=== PATIENT | female | born 1940 | race Caucasian/White ===

== ENCOUNTER 2017-05-15 11:54 | Inpatient (IN) | payer OTHER ==
[~2017-05-15] VITALS: Ht 154.9 cm; Wt 58.5 kg
[~2017-05-15 11:54] MED LIST: ASPIR-LOW81 M1 PO; B COMPLEX1 SGL SL; BENAZEPRIL20 M1 PO; FLEXERIL10 MG PO; LEXAPRO10 MG PO; LOT20 PO; MOBIC PO; PRI20 PO; PROTONIX20 MG PO; RANEXA500 M1 PO; SYN5 PO; TOPROL XL25 MG PO; ZOC10 PO
--- NOTE | 2017-05-15 11:59 | NUR ---
PT SENT TO LOBBY TO WAIT FOR AVAILABLE BED. VITALS STABLE AND NO DISTRESS NOTED
--- NOTE | 2017-05-15 13:30 | NUR ---
PT BIBA C/O GENERALIZED WEAKNESS AND CONSTIPATION X 3 DAYS. PLACED PT ON CM, VSS. PT STS DYSURIA X 1 DAY. PT INSTRUCTED TO COLLECT CLECAN CATCH URINE SAMPLE. PLACED PT ON CM, VSS. PT A/O X 4, PT'S RESP E/U, PT ABLE TO SPEAK FULL SENTENCES. AWAITING DR VILLALOBOS.
[2017-05-15 13:53] LABS: BASOPHIL % 0.3 % (0-2); PLATELET COUNT 253 x10^3mcL (130-400); RED CELL DISTRIBUTION WIDTH 13.5 % (11.5-14.5)
--- NOTE | 2017-05-15 13:53 | NUR ---
PXRAY DONE AT BEDSIDE
[2017-05-15 14:11] LABS: CALCIUM 9.4 mg/dL (8.5-10.1); CARBON DIOXIDE 26.3 mmol/L (21-32); CHLORIDE SERUM 104 mmol/L (98-107); CREATININE SERUM 0.9 mg/dL (0.6-1.0); GLUCOSE SERUM 126 mg/dL (74-106); POTASSIUM SERUM 3.6 mmol/L (3.5-5.1); SODIUM SERUM 142 mmol/L (136-145)
[2017-05-15 14:15] LABS: microscopic required? YES; urine erythrocyte 2+ (NEGATIVE)
[2017-05-15 14:16] LABS: ALBUMIN 3.4 g/dL (3.4-5.0); ALKALINE PHOSPHATASE 96 U/L (46-116); ALT/SGPT 28 U/L (14-59); AST/SGOT 19 U/L (15-37); BILIRUBIN TOTAL 0.7 mg/dL (0.20-1.00); TOTAL PROTEIN, SERUM 7.5 g/dL (6.4-8.2)
--- NOTE | 2017-05-15 15:17 | NUR ---
[facility] SPECIMEN TAKEN AND SENT TO LAB
--- NOTE | 2017-05-15 15:27 | NUR ---
REPORT GIVEN TO LAKHWINDER
[2017-05-15 15:30] LABS: MAGNESIUM 1.8 mg/dL (1.8-2.4); PHOSPHOROUS 2.9 mg/dL (2.5-4.9)
[2017-05-15 15:40] LABS: T3 TOTAL 1.02 ng/mL
[2017-05-15 15:41] LABS: FREE T4 1.15 ng/dL (0.76-1.46); FREE THYROXINE INDEX 3.2 ug/dL (1.4-4.5); T4(THYROXINE) 10.4 ug/dL (4.7-13.3)
--- NOTE | 2017-05-15 16:00 | NUR ---
RECEIVED PT FROM ED VIA TESS, CAME IN DUE TO WEAKNESS X1 MONTH. AAOX4. NO SOB NOTED, LUNG SOUNDS CTA. C/O 7/10 UPPER ACHING CHEST PAIN, NON-RADIATING. NSR ON THE MONITOR. STATED THAT LAST BM WAS 3 DAYS AGO. GENRALIZED WEAKNESS NOTED. SIDE RAILS UPX2. CALL LIGHT ON REACH. PRIMARY NURSE LAKHWINDER AT BEDSIDE FOR CONTINUITY OF CARE
[2017-05-15 16:07] VITALS: BP 140/55
[2017-05-15 16:13] VITALS: Ht 154.9 cm; Wt 58.5 kg
[2017-05-15 18:16] LABS: CHOLESTEROL/HDL RATIO 3.7
--- NOTE | 2017-05-15 19:07 | NUR ---
PT LYING IN BED, NO COMPLAINTS OF PAIN OR DISCOMFORT. ASSISTED TO USE BEDPAN NEEDED. CALL LIGHT WITHIN REACH.
--- NOTE | 2017-05-15 20:13 | NUR ---
PT CURRENTLY RESTING IN BED, NO ACUTE DISTRESS. A/O X4. TELE #9 SHOWING NSR, DENIES CHEST PAIN. PULSES PALPABLE IN ALL EXTREMITIES, NO EDEMA NOTED. LUNG SOUNDS CTA BILATERALLY. BOWEL SOUNDS ACTIVE, LAST BM 05/12/17. VOIDING WELL. GENERALIZED WEAKNESS NOTED. SKIN INTACT. PT C/O HEADACHE PAIN 05/14, MEDICATED PER EMAR. IV PATENT AND INTACT. BED IN LOWEST POSITION, SIDE RAILS UP X2, SCDS IN PLACE, CALL LIGHT WITHIN REACH. WILL CONTINUE TO MONITOR.
[2017-05-15 21:38] VITALS: BP 125/50
[2017-05-15 22:00] VITALS: BP 125/50
--- NOTE | 2017-05-16 00:16 | NUR ---
PT CURRENTLY RESTING IN BED, NO ACUTE DISTRESS. WILL CONTINUE TO MONITOR.
[2017-05-16 05:36] VITALS: BP 95/53
--- NOTE | 2017-05-16 06:03 | NUR ---
PT SLEPT PERIODICALLY THROUGHOUT NIGHT, NO ACUTE DISTRESS. ALL NEEDS MET AND ATTENDED TO. NO SIGNIFICANT CHANGES. IV PATENT AND INTACT. MEDICATED PAIN PER EMAR. BED IN LOWEST POSITION, SIDE RAILS UP X2, SCDS IN PLACE, CALL LIGHT WITHIN REACH. WILL ENDORSE CARE TO ONCOMING NURSE.
[2017-05-16 06:26] LABS: PLATELET COUNT 191 x10^3mcL (130-400); RED CELL DISTRIBUTION WIDTH 13.4 % (11.5-14.5)
[2017-05-16 06:28] LABS: CALCIUM 8.8 mg/dL (8.5-10.1); CARBON DIOXIDE 25.2 mmol/L (21-32); CHLORIDE SERUM 110 mmol/L (98-107); CREATININE SERUM 0.8 mg/dL (0.6-1.0); GLUCOSE SERUM 123 mg/dL (74-106); MAGNESIUM 1.8 mg/dL (1.8-2.4); PHOSPHOROUS 2.7 mg/dL (2.5-4.9); SODIUM SERUM 144 mmol/L (136-145)
[2017-05-16 06:37] LABS: BASOPHIL % 0 % (0-2)
--- NOTE | 2017-05-16 07:48 | NUR ---
PT ON BED, AWAKE, ALERT, AND ORIENTED. HAS NO COMPLAINT OF PAIN, SOB, OR DIZZINESS. RESPONDS WELL TO QUESTION AND ANSWER. CLEAR CLARA LUNG FIELD, SYMMETRICAL CHEST EXPANSION AND UNLABORED. ACTIVE BOWEL SOUNDS NOTED. NON DISTENDED ABDOMEN. SKIN INTACT. SIDE RAILS UP, CALL LIGHT WITHIN REACH, WILL CONTINUE TO MONITOR
[2017-05-16 11:02] VITALS: BP 130/46
--- NOTE | 2017-05-16 12:00 | NUR ---
PT'S ACCUCHECK SHOWED 116. NO COVERAGE NEEDED
[2017-05-16 12:26] LABS: IRON 17 ug/dL (50-170); TOTAL IRON BINDING CAPACITY 232 ug/dL (250-450)
[2017-05-16 12:42] LABS: RED BLOOD CELLS 3.33 M/mm3 (4.10-5.10)
[2017-05-16 13:04] VITALS: BP 147/63
--- NOTE | 2017-05-16 14:20 | NUR ---
ECHOCARIDOGRAM COMPELTED
--- NOTE | 2017-05-16 14:30 | NUR ---
PT AMBULATING WITH PHYSICAL THERAPY.
--- NOTE | 2017-05-16 15:48 | NUR ---
PT ON BED, ASLEEP
[2017-05-16 17:18] VITALS: BP 122/44
--- NOTE | 2017-05-16 17:23 | NUR ---
PT'S ACCUCHECK SHOWED 116. NO COVERAGE NEEDED
--- NOTE | 2017-05-16 19:36 | NUR ---
PT STATES MACKENZIE 01/12. WILL MEDICATE WITH FLEXIRIL PER EMAR TO SEE IF THAT HELPS. PAGEGATED DR. MEYER ABOUT PT'S MACKENZIE. WILL CONTINUE TO MONITOR.
--- NOTE | 2017-05-16 20:55 | NUR ---
PT STATES SHE HAS SINUS CONGESTION. WOULD LIKE SOMETHING TO HELP ALLEVIATE THIS. BP IS 166/52 WITH A HR OF 66. DR. MEYER MADE AWARE.
[2017-05-16 20:58] VITALS: BP 166/52
[2017-05-17 01:06] VITALS: BP 152/54
[2017-05-17 05:47] VITALS: BP 164/59
--- NOTE | 2017-05-17 06:51 | NUR ---
PT IS RESTING IN BED. NO ACUTE DISTRESS NOTED. EVEN, UNLABORED BREATHING. ALL NEEDS HAVE BEEN MET. CALL LIGHT WITHIN REACH. WILL ENDORSE TO MORNING SHIFT.
[2017-05-17 08:51] VITALS: BP 152/46
--- NOTE | 2017-05-17 10:59 | NUR ---
NORVASC GIVEN SCHEDULED.
--- NOTE | 2017-05-17 12:03 | NUR ---
PT'S ACCUCHECK SHOWED 88. NO COVERAGE NEEDED
[2017-05-17 12:40] VITALS: BP 167/58
--- NOTE | 2017-05-17 15:30 | NUR ---
PT ON BED, ASLEEP. WILL CONTINUE TO MONITOR
[2017-05-17 17:05] VITALS: BP 136/41
--- NOTE | 2017-05-17 18:02 | NUR ---
PT ON BED, AWAKE, ALERT, AND ORIENTED. PT'S ACCUCHECK SHOWED 135. NO COVERAGE NEEDED
--- NOTE | 2017-05-17 19:40 | NUR ---
RECEIVED REPORT FROM MARCIN MILLER. PT RESTING IN BED COMFORTABLY IN NO ACUTE DISTRESS OR DISCOMFORT. AAOX4. DENIES OF MACKENZIE/DIZZINESS. ON TELE MON 9 SR. DENIES OF ANY CHEST DISCOMFORT. PER PULSES STRONG. NEG ON EDEMA. IN RA WITH SAT OF 93%. BREATHING EVENLY AND UNLABORED. NO SOB NOTED. LUNGS CTA. BS ACTIVE. LAST BM DIARRHEA PER PT. ABD SOFT AND NON DISTENDED. VOIDS FREELY WITHOUT ANY PAIN. AMBULATES STEADILY. IV ON LFA PATENT. SAFETY MEASURES ENSURED. INSTRUCTED PT TO CALL FOR ANY NEEDS/ASSISTANCE. CALL LIGHT WITHIN REACH. WILL CONT TO MONITOR PT.
[2017-05-17 22:19] VITALS: BP 155/49
--- NOTE | 2017-05-18 05:04 | NUR ---
PT SLEPT COMFORTABLY THROUGH OUT THE NIGHT. WAS IN NO ACUTE DISTRESS OR DISCOMFORT. SAFETY MEASURES WERE ENSURED. CALL LIGHT WITHIN REACH.
[2017-05-18 05:18] VITALS: BP 153/62
[2017-05-18 06:19] LABS: CALCIUM 8.9 mg/dL (8.5-10.1); CARBON DIOXIDE 26.2 mmol/L (21-32); CHLORIDE SERUM 108 mmol/L (98-107); CREATININE SERUM 0.7 mg/dL (0.6-1.0); GLUCOSE SERUM 104 mg/dL (74-106); MAGNESIUM 1.8 mg/dL (1.8-2.4); PHOSPHOROUS 2.9 mg/dL (2.5-4.9); POTASSIUM SERUM 3.6 mmol/L (3.5-5.1); SODIUM SERUM 143 mmol/L (136-145)
[2017-05-18 06:20] LABS: BASOPHIL % 0.2 % (0-2); PLATELET COUNT 269 x10^3mcL (130-400); RED CELL DISTRIBUTION WIDTH 13.6 % (11.5-14.5)
--- NOTE | 2017-05-18 07:37 | NUR ---
RECEIVED PT LAYING IN BED ASLEEP. NO APARENT SIGNS OF ACUTE DISTRESS NOTED AT THIS TIME. RESPIRATIONS APPEAR EVEN AND UNLABORED. IV SITE TO THE LAC APPEARS PATENT AND INFUSING WELL AT 80ML/HR. ACCORDING TO TELE MONITOR, HR IS 81. CALL LIGHT WITHIN REACH. BED IN LOWEST POSITION. WILL CONTINUE TO MONITOR
[2017-05-18 09:45] VITALS: BP 156/54
--- NOTE | 2017-05-18 10:04 | NUR ---
AM ROUNDS DONE. PER DR. JARRELL, IF PT FEELS COMFORTABLE, SHE CAN DC LATER ON TODAY. PT AGREES TO PLAN OF CARE AND STATES THAT SHE FEELS OK TO LEAVE. CALL LIGHT WITHIN REACH. WILL CONTINUE TO MONITOR
[2017-05-18] MEDS ORDERED: BACTRIM DS1 TAB PO (10:11)
[2017-05-18] MEDS ORDERED: HYDROCHLOROTHIA25 MG PO (10:12)
[2017-05-18 10:13] VITALS: BP 157/51
[2017-05-18] MEDS ORDERED: RANEXA500 M2 PO (12:16)
[2017-05-18] MEDS ORDERED: ASPIR LOW81 MG PO (12:17)
[2017-05-18 13:17] VITALS: BP 166/68
--- NOTE | 2017-05-18 13:27 | NUR ---
PT IS CURRENTLY IN THE RESTROOM. DENIES PAIN AT THIS TIME.
--- NOTE | 2017-05-18 13:47 | NUR ---
WENT OVER DISCHARGE PAPERWORK AND PT TEACHING. PT APPEARED TO BE RECEPTIVE. IV ACCESS WAS REMOVED. PT TOLERATED WELL. TELELBOX REMOVED AND RETURNED TO MONITOR STATION. PT DENIES PAIN AT THIS TIME. PT WILL CALL FRIEND TO PICK HER UP. WILL CONTINUE TO MONITOR PT UNTIL DEPARTURE FOR SAFETY.
--- NOTE | 2017-05-18 13:56 | NUR ---
PT STATED HER RIDES IS ON THEIR WAY. UNIT STAFF WILL ESCORT PT DOWNSTAIRS VIA WHEELCHARI TO DISCHARGE OFFICE. NO APPARENT SIGNS OF ACUTE DISTRESS NOTED AT THIS TIME
== END 2017-05-18 14:00 | disposition home or self-care (01) | DRG 689 ==
LOC: ED 11:54 → DU 15:03
PROVIDERS: Emergency Medicine; ADMIT Family Medicine
DX: N39.0 Urinary tract infection, site not specified (principal); N17.0 Acute kidney failure with tubular necrosis; E86.0 Dehydration; R31.9 Hematuria, unspecified; I12.9 Hypertensive chronic kidney disease with stage 1 through stage 4 chronic kidney disease, or unspecified chronic kidney disease; N18.9 Chronic kidney disease, unspecified; I44.7 Left bundle-branch block, unspecified; D64.9 Anemia, unspecified; M19.011 Primary osteoarthritis, right shoulder; G93.89 Other specified disorders of brain; I07.1 Rheumatic tricuspid insufficiency; N28.1 Cyst of kidney, acquired; E67.8 Other specified hyperalimentation; Z66 Do not resuscitate; Z51.5 Encounter for palliative care; Z87.442 Personal history of urinary calculi; Z87.891 Personal history of nicotine dependence; Z79.82 Long term (current) use of aspirin; Z68.24 Body mass index [BMI] 24.0-24.9, adult
CPT/HCPCS: 82962; 84439; J0696; J2916; J7030; Q0092

== ENCOUNTER 2017-12-31 14:47 | Emergency (ER) | payer OTHER ==
[~2017-12-31] VITALS: Ht 152.4 cm; Wt 59.5 kg
[~2017-12-31 14:47] MED LIST changes: +ASPIR LOW81 MG PO; +BACTRIM DS1 TAB PO; +HYDROCHLOROTHIA25 MG PO; +RANEXA500 M2 PO
[2017-12-31 15:36] LABS: BASOPHIL % 0.4 % (0-2); PLATELET COUNT 305 x10^3mcL (130-400); RED CELL DISTRIBUTION WIDTH 13.1 % (11.5-14.5)
[2017-12-31 15:49] LABS: CALCIUM 9.6 mg/dL (8.5-10.1); CARBON DIOXIDE 28.2 mmol/L (21-32); CHLORIDE SERUM 102 mmol/L (98-107); CREATININE SERUM 0.7 mg/dL (0.6-1.0); GLUCOSE SERUM 106 mg/dL (74-106); POTASSIUM SERUM 3.4 mmol/L (3.5-5.1); SODIUM SERUM 140 mmol/L (136-145)
[2017-12-31 16:01] LABS: ALBUMIN 3.7 g/dL (3.4-5.0); ALKALINE PHOSPHATASE 92 U/L (46-116); ALT/SGPT 24 U/L (14-59); AST/SGOT 21 U/L (15-37); BILIRUBIN TOTAL 0.41 mg/dL (0.20-1.00); TOTAL PROTEIN, SERUM 7.9 g/dL (6.4-8.2)
[2017-12-31 17:49] VITALS: BP 139/61
== END 2017-12-31 17:49 | disposition home or self-care (01) ==
LOC: ED 14:47
PROVIDERS: Emergency Medicine
DX: J20.9 Acute bronchitis, unspecified (principal); E03.9 Hypothyroidism, unspecified; I10 Essential (primary) hypertension; Z94.9 Transplanted organ and tissue status, unspecified; Z90.710 Acquired absence of both cervix and uterus
CPT/HCPCS: 36415; 83880; 85378; J7620; Q9967

== ENCOUNTER 2018-10-31 21:33 | Emergency (ER) | payer OTHER ==
[~2018-10-31] VITALS: Ht 152.4 cm; Wt 65.8 kg
[2018-10-31 21:39] VITALS: Ht 152.4 cm; Wt 65.8 kg
[2018-10-31 22:06] LABS: BASOPHIL % 0.5 % (0-2); PLATELET COUNT 238 x10^3mcL (130-400); RED CELL DISTRIBUTION WIDTH 13.1 % (11.5-14.5)
[2018-10-31 22:20] LABS: CALCIUM 9.2 mg/dL (8.5-10.1); CARBON DIOXIDE 29.8 mmol/L (21-32); CHLORIDE SERUM 102 mmol/L (98-107); CREATININE SERUM 0.6 mg/dL (0.6-1.0); GLUCOSE SERUM 100 mg/dL (74-106); POTASSIUM SERUM 3.2 mmol/L (3.5-5.1); SODIUM SERUM 137 mmol/L (136-145)
[2018-10-31 22:24] LABS: ALBUMIN 3.6 g/dL (3.4-5.0); ALKALINE PHOSPHATASE 95 U/L (46-116); ALT/SGPT 21 U/L (14-59); AST/SGOT 20 U/L (15-37); BILIRUBIN TOTAL 0.25 mg/dL (0.20-1.00); TOTAL PROTEIN, SERUM 7.1 g/dL (6.4-8.2)
[2018-11-01 01:12] VITALS: BP 110/48
== END 2018-11-01 01:12 | disposition home or self-care (01) ==
LOC: ED 21:33
PROVIDERS: Emergency Medicine
DX: I16.0 Hypertensive urgency (principal); M54.2 Cervicalgia; Z90.89 Acquired absence of other organs; Z90.710 Acquired absence of both cervix and uterus; Z98.890 Other specified postprocedural states
CPT/HCPCS: J0360

== ENCOUNTER 2018-11-03 22:25 | Emergency (ER) | payer OTHER ==
[~2018-11-03] VITALS: Ht 154.9 cm; Wt 54.4 kg
[2018-11-03 22:33] VITALS: Ht 154.9 cm; Wt 54.4 kg
[2018-11-03 23:04] LABS: BASOPHIL % 0.8 % (0-2); PLATELET COUNT 261 x10^3mcL (130-400); RED CELL DISTRIBUTION WIDTH 13.1 % (11.5-14.5)
[2018-11-03 23:07] LABS: CALCIUM 10.1 mg/dL (8.5-10.1); CARBON DIOXIDE 26.8 mmol/L (21-32); CHLORIDE SERUM 101 mmol/L (98-107); CREATININE SERUM 0.7 mg/dL (0.6-1.0); GLUCOSE SERUM 101 mg/dL (74-106); POTASSIUM SERUM 3.4 mmol/L (3.5-5.1); SODIUM SERUM 138 mmol/L (136-145)
[2018-11-04 00:45] VITALS: BP 151/66
== END 2018-11-04 01:04 | disposition home or self-care (01) ==
LOC: ED 22:25
PROVIDERS: Emergency Medicine
DX: I10 Essential (primary) hypertension (principal); H40.9 Unspecified glaucoma; H26.9 Unspecified cataract; E11.9 Type 2 diabetes mellitus without complications; Z86.73 Personal history of transient ischemic attack (TIA), and cerebral infarction without residual deficits; Z90.710 Acquired absence of both cervix and uterus; Z85.3 Personal history of malignant neoplasm of breast
CPT/HCPCS: 36415